=== PATIENT | female | born 1975 | race Caucasian/White ===

== ENCOUNTER 2018-11-04 09:43 | Inpatient (IN) | payer OTHER ==
[~2018-11-04] VITALS: Ht 167.6 cm; Wt 64.4 kg
[2018-11-04] MEDS ORDERED: HYZAAR 50-12.51 EACH PO (13:06)
[2018-11-04] MEDS ORDERED: MOBIC7.5 MG PO (13:07)
[2018-11-04] MEDS ORDERED: LYRICA50 MG PO (13:07)
[2018-11-13] MEDS ORDERED: NAPROXEN375 M1 PO (08:40)
[2018-11-13] MEDS ORDERED: COLACE100 MG PO (08:40)
[2018-11-13] MEDS ORDERED: TANDEM DUAL AC106 MG PO (08:41)
== END 2018-11-13 09:38 | disposition home or self-care (01) | DRG 743 ==
LOC: O/R 11-11 05:30 → SURH 11-11 05:30 → O/R 11-11 07:00 → SURH 11-11 12:54 → O/R 11-11 13:45 → SURH 11-13 09:38
PROVIDERS: ADMIT Obstetrics & Gynecology
PROC: 0UT70ZZ Resection of Bilateral Fallopian Tubes, Open Approach (ICD-10-PCS; 2018-11-11)
PROC: 0USG0ZZ Reposition Vagina, Open Approach (ICD-10-PCS; 2018-11-11)
PROC: 0US20ZZ Reposition Bilateral Ovaries, Open Approach (ICD-10-PCS; 2018-11-11)
PROC: 0UT90ZZ Resection of Uterus, Open Approach (ICD-10-PCS; principal; 2018-11-11 07:00)
DX: N80.0 Endometriosis of uterus (principal); N92.0 Excessive and frequent menstruation with regular cycle; N72 Inflammatory disease of cervix uteri; N84.0 Polyp of corpus uteri; D25.1 Intramural leiomyoma of uterus; D25.0 Submucous leiomyoma of uterus; D25.2 Subserosal leiomyoma of uterus; N73.6 Female pelvic peritoneal adhesions (postinfective); I10 Essential (primary) hypertension